=== PATIENT | female | born 1945 | race Caucasian/White ===

== ENCOUNTER → 2017-05-21 | Outpatient (CLI) | payer MEDICARE, OTHER | LOC: RAD 12:40 | DX: Q85.00 Neurofibromatosis, unspecified (principal); M89.8X8 Other specified disorders of bone, other site ==

== ENCOUNTER 2024-03-14 12:52 | Emergency (ER) | payer MEDICARE ==
[~2024-03-14] VITALS: Ht 162.6 cm; Wt 60.5 kg
[2024-03-14] MEDS ORDERED: SERTRALINE50 MG PO (13:29)
[2024-03-14] MEDS ORDERED: MAXALT10 M2 PO (13:29)
[2024-03-14] MEDS ORDERED: PRILOSEC10 MG/Pack PO (13:30)
[2024-03-14 14:46] VITALS: BP 117/71
== END 2024-03-14 14:34 | disposition home or self-care (01) ==
LOC: ED 12:52
DX: S01.01XA Laceration without foreign body of scalp, initial encounter (principal); W18.30XA Fall on same level, unspecified, initial encounter